=== PATIENT | male | born 1950 | race Caucasian/White ===

== ENCOUNTER 2020-12-03 09:21 | Observation (INO) ==
[~2020-12-03 09:21] MED LIST: Buffered Lidocaine 1% SYRIN 1 ml INTRADERM ONE; Lactated Ringers 1000 ml BAG 1,000 ML IV SCH
[2020-12-03] MEDS ORDERED: Lidocaine 1% w EPI 1:100,000 MDV 20 ML VIAL ONE (14:03)
[2020-12-03] MEDS ORDERED: diPHENhydraMINE IV 50 MG/ML 1 ml VIAL (BENADRYL) IV PRN (14:10)
[2020-12-03] MEDS ORDERED: Naloxone 0.4 mg VIAL 0.4 mg/ml 1 ml VIAL IV PRN (14:10)
[2020-12-03] MEDS ORDERED: Prochlorperazine 5 mg/ml 2 ml VIAL (10 mg) IV PRN (14:10)
[2020-12-03] MEDS ORDERED: HYDROmorphone 1 MG/1 ML SYRINGE IV PRN (14:10)
[2020-12-03] MEDS ORDERED: Lidocaine 2% PF 5 ML VIAL ONE (14:19)
[2020-12-03] MEDS ORDERED: fentaNYL 250 mcg/5 ml 50 MCG/ML 5 ml VIAL (250 MCG) ONE (14:19)
[2020-12-03] MEDS ORDERED: Propofol 10 MG/ML 20 ML BTL ONE (14:19)
[2020-12-03] MEDS ORDERED: Rocuronium 50 mg VIAL 10 mg/ml 5 ml VIAL (50 mg) ONE ×2 (14:20→15:29)
[2020-12-03] MEDS ORDERED: EPHEDrine (Pressors) 50 MG/ML VIAL ONE (14:43)
[2020-12-03] MEDS ORDERED: Sterile Water for Inj 10 ML ONE (14:43)
[2020-12-03] MEDS ORDERED: Acetaminophen IV 1 GM/100ML 100 ML ONE (14:45)
[2020-12-03] MEDS ORDERED: Dexamethasone IV 4 MG/ML VIAL 1 ml VIAL ONE ×2 (14:49)
[2020-12-03] MEDS ORDERED: Morphine ORAL.SOLN 10 mg 2 mg/ml UDC 5 ml (10 mg) PO ONE (17:22)
[2020-12-03] MEDS ORDERED: Morphine 2 MG/ML SYRINGE IV ONE (19:49)
[2020-12-03] MEDS ORDERED: Morphine 4 MG/ML VIAL (1 ml) ONE (19:51)
[2020-12-03] MEDS ORDERED: Dextrose 50% Syringe 50 ml 25 GM/50 ML SYRINGE IV PUSH PRN (20:04)
[2020-12-03] MEDS ORDERED: HYDROcodone/ACET. 7.5/325 LIQ 15 ML UDC PO PRN (20:09)
[2020-12-03] MEDS ORDERED: Insulin GLARGINE 100 un/ml 10 ml VIAL SUBCUT SCH (21:00)
[2020-12-03] MEDS ORDERED: Pantoprazole VIAL 40 MG VIAL IV SCH (21:00)
[2020-12-03] MEDS ORDERED: oxyCODONE 5 mg/5 ml ORAL.SOLN UDC PO PRN (21:20)
[2020-12-03] MEDS ORDERED: Psyllium PAK PO PRN (21:44)
[2020-12-03] MEDS: Chlorhexidine MOUTHWASH 0.12% 15 ML UDC SWISH SPIT SCH (21:54)
[2020-12-03] MEDS: oxyCODONE 5 mg/5 ml ORAL.SOLN UDC PO PRN (23:37)
[2020-12-03] MEDS: Dexamethasone IV 4 MG/ML VIAL 1 ml VIAL IV SLOW PU SCH (23:40)
[2020-12-04] MEDS: oxyCODONE 5 mg/5 ml ORAL.SOLN UDC PO PRN (05:26)
[2020-12-04] MEDS: Dexamethasone IV 4 MG/ML VIAL 1 ml VIAL IV SLOW PU SCH (05:29)
[2020-12-04 07:10] LABS: ABS Basophils 0.1 10^3/ul (0-0.2); ABS Lymphocytes 0.6 10^3/ul (1.0-4.8); ABS Monocytes 0.3 10^3/ul (0-0.8); ABS Neutrophils 12.3 10^3/ul (1.5-7.7); Hematocrit 48 % (42-52); Hemoglobin 16.4 g/dL (14.0-18.0); Lymphocyte % 4.4 %; Mean Corpuscular HGB Conc 34 g/dL (31-36); Mean Corpuscular Hemoglobin 33 pg (27-31); Mean Corpuscular Volume 96 fL (80-94); Mean Platelet Volume 9.2 fL (7.4-10.4); Platelet Count 198 10^3/uL (150-450); Red Blood Count 5.01 10^6 /uL (4.18-5.48); Red Cell Distribution Width 15 % (10-15); White Blood Count 13.2 10^3/uL (3.5-10.8)
[2020-12-04 08:05] VITALS: BP 132/63
[2020-12-04] MEDS ORDERED: TELMISARTAN 40 MG PO SCH (09:00)
[2020-12-04] MEDS ORDERED: Cholecalciferol (VIT D3) 1,000 unit TAB PO SCH (09:00)
[2020-12-04] MEDS ORDERED: LINAGLIPTIN 5 MG PO SCH (09:00)
[2020-12-04] MEDS: Chlorhexidine MOUTHWASH 0.12% 15 ML UDC SWISH SPIT SCH (09:32)
== END 2020-12-04 10:26 | disposition home or self-care (01) ==
LOC: SSU 09:21 → OR 09:21
PROVIDERS: ADMIT Internal Medicine; ATTEND Hospitalist

== ENCOUNTER 2022-07-13 09:28 | Inpatient (IN) ==
[2022-07-13] MEDS: Propofol 10 mg/ml 100 ML BTL 1,000 MG/100 ML BTL IV SCH ×3 (09:54→21:57)
[2022-07-13 09:57] LABS: PCO2 Arterial 53 mmHg (35-45); PO2 Arterial 69 mmHg (80-100)
[2022-07-13] MEDS ORDERED: fentaNYL INFUSION 50 mcg/mL VL 2,500 MCG/50 ML VIAL IV SCH (10:00)
[2022-07-13] MEDS ORDERED: Norepinephrine 16MCG/ML BAG NS 4,000 MCG/250 ML BAG IV SCH (10:00)
[2022-07-13] MEDS ORDERED: Zosyn per Pharmacy NOTE FOLLOW UP SCH (11:00)
[2022-07-13] MEDS ORDERED: Iodixanol (CONTRAST) 320 MG/ML 100 ML SDV IV ONE (11:18)
[2022-07-13] MEDS: Chlorhexidine MOUTHWASH 0.12% 15 ML UDC TOPICAL SCH ×4 (12:21→23:24)
[2022-07-13] MEDS: Pantoprazole VIAL 40 MG VIAL IV SCH (12:21)
[2022-07-13] MEDS: DOXYcycline 100 MG in NS 0.9% 250 ml 250 ML IVPB SCH (12:31)
[2022-07-13] MEDS ORDERED: Lidocaine 1% MPF 5 ML VIAL INJ ONE (12:50)
[2022-07-13 13:46] LABS: Urine Appearance Cloudy; Urine Bilirubin Negative (Negative); Urine Blood 1+ (Negative); Urine Color Straw; Urine Glucose 2+(150 mg/dL) (Negative); Urine Ketones Negative (Negative); Urine Nitrite Negative (Negative); Urine Protein Negative (Negative); Urine Specific Gravity 1.036 (1.002-1.030); Urine Urobilinogen Negative (Negative)
[2022-07-13 13:47] LABS: Urine Bacteria Absent (Absent); Urine Red Blood Cell 1+(3-5/hpf) (Absent); Urine White Blood Cell 3+(>20/hpf) (Absent)
[2022-07-13] MEDS ORDERED: ZOSYN 3.375 GM Q8H per EXTENDED INFUSION IV SCH (14:00)
[2022-07-13] MEDS ORDERED: Furosemide 40 mg/4 ml IV VIAL IV SLOW PU ONE (14:04)
[2022-07-13] MEDS: Enoxaparin 100 MG/ML SYR SUBCUT SCH (14:05)
[2022-07-13] MEDS: methylPREDNISolone SOD SUCC 40 mg/ml 1 ml VIAL IV SCH (14:06)
[2022-07-13 15:54] LABS: High Sensitivity Troponin 1 Hr 719 pg/mL (<20)
[2022-07-13] MEDS ORDERED: ZOSYN 3.375 GM x ONE DOSE over 30 miuntes IV (16:30)
[2022-07-13] MEDS ORDERED: Dextrose 50% Syringe 50 ml 25 GM/50 ML SYRINGE IV PUSH PRN (18:28)
[2022-07-13 18:41] LABS: Calcium 7.6 mg/dL (8.6-10.3); Magnesium 1.9 mg/dL (1.9-2.7); Potassium 4.1 mmol/L (3.5-5.0); eGFR CKD-EPI 52.8 (>60)
[2022-07-13] MEDS ORDERED: Magnesium Sulfate IV 1GM/100ML 1 GM/100 ML BAG IV ONE (18:49)
[2022-07-13] MEDS: ZOSYN 3.375 GM Q8H per EXTENDED INFUSION IV SCH (20:58)
[2022-07-14] MEDS: DOXYcycline 100 MG in NS 0.9% 250 ml 250 ML IVPB SCH ×3 (00:17→22:47)
[2022-07-14] MEDS: Enoxaparin 100 MG/ML SYR SUBCUT SCH ×2 (00:42→09:05)
[2022-07-14] MEDS: methylPREDNISolone SOD SUCC 40 mg/ml 1 ml VIAL IV SCH (00:42)
[2022-07-14] MEDS ORDERED: Furosemide 40 mg/4 ml IV VIAL IV SLOW PU ONE ×2 (02:49→08:58)
[2022-07-14] MEDS: Chlorhexidine MOUTHWASH 0.12% 15 ML UDC TOPICAL SCH ×3 (03:09→09:32)
[2022-07-14 04:23] LABS: Hematocrit 46 % (42-52); Hemoglobin 15.2 g/dL (14.0-18.0); Mean Corpuscular HGB Conc 33 g/dL (31-36); Mean Corpuscular Hemoglobin 32 pg (27-31); Mean Corpuscular Volume 96 fL (80-94); Mean Platelet Volume 9.5 fL (7.4-10.4); Platelet Count 176 10^3/uL (150-450); Red Blood Count 4.74 10^6 /uL (4.18-5.48); Red Cell Distribution Width 16 % (10-15); White Blood Count 12.3 10^3/uL (3.5-10.8)
[2022-07-14] MEDS: Propofol 10 mg/ml 100 ML BTL 1,000 MG/100 ML BTL IV SCH ×2 (04:32→09:31)
[2022-07-14] MEDS: Saline FLUSH-CENTRAL 10 ML SYRINGE CENT\\PICC SCH ×2 (04:33→14:56)
[2022-07-14] MEDS: ZOSYN 3.375 GM Q8H per EXTENDED INFUSION IV SCH ×3 (04:54→19:50)
[2022-07-14 05:25] LABS: ALT 89 U/L (7-52); Albumin 3.3 g/dL (3.2-5.2); Albumin/Globulin Ratio 1.6 (1-3); Alkaline Phosphatase 75 U/L (35-149); Blood Urea Nitrogen 25 mg/dL (6-24); CO2 Carbon Dioxide 27 mmol/L (22-32); Calcium 7.9 mg/dL (8.6-10.3); Chloride 101 mmol/L (101-111); Globulin 2.1 g/dL (2-4); Glucose 213 mg/dL (70-100); Sodium 139 mmol/L (135-145); Total Protein 5.4 g/dL (6.4-8.9); eGFR CKD-EPI 51.5 (>60)
[2022-07-14 05:31] LABS: Anion Gap 11 mmol/L (2-11)
[2022-07-14 07:01] LABS: Magnesium 2.1 mg/dL (1.9-2.7); Potassium Redraw 3.9 mmol/L (3.5-5.0)
[2022-07-14] MEDS ORDERED: KCL 20 MEQ/100 ML IVPREMIX 20 MEQ/100 ML BAG IV ONE (07:50)
[2022-07-14] MEDS ORDERED: fentaNYL 100 mcg/2 ml 50 MCG/ML VIAL IV SLOW PU PRN (08:00)
[2022-07-14] MEDS ORDERED: fentaNYL 100 mcg/2 ml 50 MCG/ML VIAL ONE (08:03)
[2022-07-14] MEDS ORDERED: Sulfur Hexaflouride MICROSPHR 25 MG VIAL ONE (08:08)
[2022-07-14 08:32] LABS: Phosphorus 4.1 mg/dL (2.5-5.0)
[2022-07-14] MEDS ORDERED: Dexmedetomidine 1,000 MCG in NS 0.9% 250 ml 240 ML IV SCH ×2 (09:00→14:00)
[2022-07-14 09:33] LABS: PCO2 Arterial 51 mmHg (35-45); PO2 Arterial 74 mmHg (80-100)
[2022-07-14] MEDS ORDERED: Propofol 10 MG/ML 20 ML BTL IV PUSH ONE (10:35)
[2022-07-14] MEDS ORDERED: Propofol 10 MG/ML 20 ML BTL ONE (10:36)
[2022-07-14 12:26] LABS: PCO2 Arterial 51 mmHg (35-45); PO2 Arterial 77 mmHg (80-100)
[2022-07-14] MEDS: Pantoprazole VIAL 40 MG VIAL IV SCH (13:00)
[2022-07-14] MEDS: Nicotine PATCH 14 MG/24 HR PATCH TRANSDERM SCH (13:35)
[2022-07-14] MEDS ORDERED: Albuterol/Ipratropium NEB.SOL (2.5/0.5 MG) 3 ML NEB.SOLN INH PRN (15:00)
[2022-07-14] MEDS ORDERED: Magnesium Sulfate 2 gm BAG 2 GM/50 ML BAG IVPB ONE (16:45)
[2022-07-14] MEDS: Insulin GLARGINE 100 un/ml 10 ml VIAL SUBCUT SCH (21:00)
[2022-07-15] MEDS: Saline FLUSH-CENTRAL 10 ML SYRINGE CENT\\PICC SCH ×2 (04:06→17:09)
[2022-07-15 04:19] LABS: ABS Basophils 0.2 10^3/ul (0-0.2); ABS Eosinophils 0.1 10^3/ul (0-0.6); ABS Lymphocytes 2.6 10^3/ul (1.0-4.8); ABS Neutrophils 8.3 10^3/ul (1.5-7.7); Eosinophil % 0.8 %; Hematocrit 44 % (42-52); Hemoglobin 14.8 g/dL (14.0-18.0); Lymphocyte % 21.3 %; Mean Corpuscular HGB Conc 34 g/dL (31-36); Mean Corpuscular Hemoglobin 32 pg (27-31); Mean Corpuscular Volume 93 fL (80-94); Nucleated Red Blood Cells % 0.1; Platelet Count 187 10^3/uL (150-450); Red Blood Count 4.69 10^6 /uL (4.18-5.48); Red Cell Distribution Width 15 % (10-15); White Blood Count 12.2 10^3/uL (3.5-10.8)
[2022-07-15] MEDS: ZOSYN 3.375 GM Q8H per EXTENDED INFUSION IV SCH ×3 (04:31→21:23)
[2022-07-15 04:43] LABS: Calcium 8.1 mg/dL (8.6-10.3); Magnesium 2.2 mg/dL (1.9-2.7); eGFR CKD-EPI 54.7 (>60)
[2022-07-15 04:47] LABS: Potassium 3.6 mmol/L (3.5-5.0)
[2022-07-15] MEDS ORDERED: Potassium Chlor 20 meq TAB.ER PO ONE (07:41)
[2022-07-15] MEDS: Nicotine PATCH 14 MG/24 HR PATCH TRANSDERM SCH (08:27)
[2022-07-15] MEDS ORDERED: Furosemide 40 mg/4 ml IV VIAL IV SLOW PU ONE (08:33)
[2022-07-15] MEDS ORDERED: Albuterol/Ipratropium NEB.SOL (2.5/0.5 MG) 3 ML NEB.SOLN INH PRN (08:35)
[2022-07-15 10:57] LABS: HDL Cholesterol 40.3 mg/dL
[2022-07-15] MEDS ORDERED: Albuterol 2.5mg/3 ml (0.083%) NEB.SOLN INH PRN (11:59)
[2022-07-15] MEDS: Pantoprazole VIAL 40 MG VIAL IV SCH (12:12)
[2022-07-15] MEDS: Tiotropium Brom/Olodaterol MDI INH SCH (13:05)
[2022-07-15] MEDS: Calcium Carb (TUMS) 500 mg CHEW TAB PO PRN ×2 (13:51→19:44)
[2022-07-15] MEDS: Insulin GLARGINE 100 un/ml 10 ml VIAL SUBCUT SCH (20:58)
[2022-07-16] MEDS: Saline FLUSH-CENTRAL 10 ML SYRINGE CENT\\PICC SCH ×2 (04:27→17:54)
[2022-07-16 06:17] LABS: ABS Eosinophils 0.2 10^3/ul (0-0.6); ABS Lymphocytes 2.1 10^3/ul (1.0-4.8); ABS Monocytes 0.9 10^3/ul (0-0.8); ABS Neutrophils 6.9 10^3/ul (1.5-7.7); Eosinophil % 1.8 %; Hematocrit 48 % (42-52); Hemoglobin 15.9 g/dL (14.0-18.0); Lymphocyte % 21.1 %; Mean Corpuscular HGB Conc 33 g/dL (31-36); Mean Corpuscular Hemoglobin 32 pg (27-31); Mean Corpuscular Volume 96 fL (80-94); Mean Platelet Volume 9.1 fL (7.4-10.4); Nucleated Red Blood Cells % 0.1; Platelet Count 191 10^3/uL (150-450); Red Blood Count 4.98 10^6 /uL (4.18-5.48); Red Cell Distribution Width 15 % (10-15); White Blood Count 10.1 10^3/uL (3.5-10.8)
[2022-07-16] MEDS: ZOSYN 3.375 GM Q8H per EXTENDED INFUSION IV SCH ×3 (06:27→22:33)
[2022-07-16 06:33] LABS: Calcium 8.8 mg/dL (8.6-10.3); Magnesium 2.1 mg/dL (1.9-2.7); Potassium 3.8 mmol/L (3.5-5.0); eGFR CKD-EPI 59.3 (>60)
[2022-07-16] MEDS: Tiotropium Brom/Olodaterol MDI INH SCH (07:18)
[2022-07-16] MEDS ORDERED: Regadenoson 0.4 MG/5 ML SYRINGE ONE (08:50)
[2022-07-16] MEDS ORDERED: Aminophylline 25 MG/ML VIAL ONE (08:50)
[2022-07-16] MEDS: Nicotine PATCH 14 MG/24 HR PATCH TRANSDERM SCH (10:29)
[2022-07-16] MEDS: Nicotine GUM 2MG FRUIT FLAVOR PO PRN ×3 (13:28→23:28)
[2022-07-16 17:35] LABS: Glucose Confirmatory 438 mg/dL (70-100)
[2022-07-16] MEDS: Insulin GLARGINE 100 un/ml 10 ml VIAL SUBCUT SCH (22:30)
[2022-07-17] MEDS: Saline FLUSH-CENTRAL 10 ML SYRINGE CENT\\PICC SCH ×2 (05:06→15:49)
[2022-07-17] MEDS: ZOSYN 3.375 GM Q8H per EXTENDED INFUSION IV SCH ×2 (05:41→14:50)
[2022-07-17 05:52] LABS: ABS Basophils 0.1 10^3/ul (0-0.2); ABS Eosinophils 0.2 10^3/ul (0-0.6); ABS Monocytes 0.9 10^3/ul (0-0.8); ABS Neutrophils 7.1 10^3/ul (1.5-7.7); Eosinophil % 2.2 %; Hematocrit 46 % (42-52); Hemoglobin 15.2 g/dL (14.0-18.0); Lymphocyte % 19.6 %; Mean Corpuscular HGB Conc 33 g/dL (31-36); Mean Corpuscular Hemoglobin 32 pg (27-31); Mean Corpuscular Volume 95 fL (80-94); Mean Platelet Volume 8.9 fL (7.4-10.4); Platelet Count 181 10^3/uL (150-450); Red Blood Count 4.82 10^6 /uL (4.18-5.48); Red Cell Distribution Width 15 % (10-15); White Blood Count 10.3 10^3/uL (3.5-10.8)
[2022-07-17 06:32] LABS: Albumin 3.7 g/dL (3.2-5.2); Albumin/Globulin Ratio 1.7 (1-3); Calcium 8.7 mg/dL (8.6-10.3); Globulin 2.2 g/dL (2-4); Magnesium 2.1 mg/dL (1.9-2.7); Potassium 4.1 mmol/L (3.5-5.0); Total Bilirubin 0.6 mg/dL (0.2-1.0); Total Protein 5.9 g/dL (6.4-8.9); eGFR CKD-EPI 69.5 (>60)
[2022-07-17] MEDS: Tiotropium Brom/Olodaterol MDI INH SCH (07:46)
[2022-07-17] MEDS: Nicotine PATCH 14 MG/24 HR PATCH TRANSDERM SCH (08:07)
[2022-07-17 16:54] VITALS: BP 123/55
== END 2022-07-17 16:25 | disposition home or self-care (01) | DRG 871 ==
LOC: ED 09:28 → SUATTDRO 10:01 → EDHOLD 10:01 → ICU 11:51 → MEDTELE 07-15 14:10
PROVIDERS: ADMIT Internal Medicine; ATTEND Internal Medicine Hematology & Oncology